=== PATIENT | male | born 1965 | race Caucasian/White ===

== ENCOUNTER 2022-07-19 07:08 | Day surgery (SDC) | payer BC ==
[2022-07-19] MEDS ORDERED: Propofol 200 MG/20 ML SDV IV ONE (07:09)
[2022-07-19] MEDS ORDERED: Lactated Ringers 1,000 ML IV SCH (07:15)
[2022-07-19] MEDS ORDERED: Sodium Chloride 0.9% 10 ML Syringe FLUSH PRN (07:15)
[2022-07-19] MEDS ORDERED: Simethicone Drops 40 MG/0.6 ML 30 ML Bottle ONE (08:31)
== END 2022-07-19 10:00 | disposition home or self-care (01) ==
LOC: FB.SDS 07:08
PROVIDERS: ATTEND Surgery
DX: D12.6 Benign neoplasm of colon, unspecified (principal); D17.79 Benign lipomatous neoplasm of other sites
CPT/HCPCS: 00812; 88305; A9270-GY; J2704; J7120